=== PATIENT | male | born 1975 | race Caucasian/White ===

== ENCOUNTER 2016-09-20 18:47 | Emergency (ER) | payer OTHER ==
[~2016-09-20] VITALS: Ht 177.8 cm; Wt 87.5 kg
[2016-09-20 18:50] VITALS: Ht 177.8 cm; Wt 87.5 kg
[2016-09-20] MEDS ORDERED: SOD CHLORIDE 0.9% 1,000 ML IV STA (19:11)
[2016-09-20] MEDS ORDERED: ONDANSETRON 4 MG INJ IV STA (19:11)
--- NOTE | 2016-09-20 19:38 | ERD ---
ER Documentation Chief Complaint Date/Time DATE: 09/20/16 TIME: 19:37 Chief Complaint diffuse abd pain x 4 days HPI 40-year-old male comes in with abdominal pain that started 4 days ago. Patient started with epigastric pain 4 nights ago, it then migrated to the lower abdomen complains of suprapubic abdominal pain radiating to the right lower quadrant associated with mild nausea, and loose stools and constipation. He feels as if he has had chills at night, however no definite fever. For the pain he has tried doing laxatives, which led to watery stools only, no blood in the stools. Patient denies history of any abdominal surgeries. Patient's last oral intake was approximately an hour ago he states that he ate ice cream. ROS All systems reviewed and are negative except as per history of present illness. Medications Home Meds Active Scripts Magnesium Citrate* (Magnesium Citrate*) 296 Ml Solution, 296 ML PO ONCE, #1 BOTTLE Prov:OZZY ACEVEDO PA-C 09/20/16 Ranitidine Hcl* (Zantac*) 150 Mg Tablet, 150 MG PO BID Y for EPIGASTRIC PAIN, # 30 TAB Prov:OZZY ACEVEDO PA-C 09/20/16 Allergies Allergies: Coded Allergies: No Known Allergy (Unverified , 09/20/16) PMhx/Soc Medical and Surgical Hx: pt denies Medical Hx, pt denies Surgical Hx History of Surgery: No Anesthesia Reaction: No Hx Neurological Disorder: No Hx Respiratory Disorders: No Hx Cardiac Disorders: No Hx Psychiatric Problems: No Hx Miscellaneous Medical Probl: No Hx Alcohol Use: Yes Hx Tobacco Use: Yes Smoking Status: Current every day smoker Physical Exam Vitals Vital Signs Date Time Temp Pulse Resp B/P Pulse Ox O2 Delivery O2 Flow Rate FiO2 09/20/16 18:50 97.8 101 20 117/82 99 Physical Exam General: Well-developed, well-nourished. The patient appears in no acute distress. HEENT: Head is normocephalic, atraumatic. No scleral icterus. Neck: Supple. Nontender. Lungs: Clear to auscultation. Normal air movement. Heart: Regular rate and rhythm. S1 and S2 are normal. No murmurs, gallops, or rubs. Abdomen: Soft, tender in the right lower quadrant, and suprapubic, no rebound pain, no mass nondistended. Bowel sounds are normoactive. Extremities: No clubbing or cyanosis. Normal pulses. Moving extremities x 4. No weakness. Neurologic: Alert and oriented 3. No focal deficits. Skin: Normal turgor. No rash or lesions. Result Diagram: 09/20/16193409/20/161934 Results 24 hrs Laboratory Tests Test 09/20/16 19:26 09/20/16 19:35 Urine Color YELLOW Urine Clarity CLEAR Urine pH 6.0 Urine Specific [place] >=1.030 Urine Ketones NEGATIVE Urine Nitrite NEGATIVE Urine Bilirubin NEGATIVE Urine Urobilinogen 0.2 E.U./dL Urine Leukocyte Esterase NEGATIVE Urine Microscopic RBC 0-2/HPF Urine Microscopic WBC NONE SEEN/HPF Urine Uric Acid Crystals RARE Urine Hemoglobin TRACE Urine Glucose NEGATIVE% Urine Total Protein TRACE White Blood Count 9.110^3/ul Red Blood Count 5.4910^6/ul Hemoglobin 17.2g/dl Hematocrit 49.1% Mean Corpuscular Volume 89.4fl Mean Corpuscular Hemoglobin 31.3pg Mean Corpuscular Hemoglobin Concent 35.0g/dl Red Cell Distribution Width 12.1% Platelet Count 05742^3/UL Mean Platelet Volume 9.5fl Neutrophils % 49.0% Lymphocytes % 37.7% Monocytes % 9.1% Eosinophils % 2.8% Basophils % 1.1% Nucleated Red Blood Cells % 0.0/100WBC Neutrophils # 4.510^3/ul Lymphocytes # 3.410^3/ul Monocytes # 0.810^3/ul Eosinophils # 0.310^3/ul Basophils # 0.110^3/ul Nucleated Red Blood Cells # 0.010^3/ul Sodium Level 140mmol/L Potassium Level 4.0mmol/L Chloride Level 104mmol/L Carbon Dioxide Level 26mmol/L Anion Gap 14 Blood Urea Nitrogen 12mg/dl Creatinine 0.89mg/dl Glucose Level 104mg/dl Calcium Level 10.1mg/dl Total Bilirubin 0.5mg/dl Direct Bilirubin 0.00mg/dl Indirect Bilirubin 0.5mg/dl Aspartate Amino Transf (AST/SGOT) 23IU/L Alanine Aminotransferase (ALT/SGPT) 39IU/L Alkaline Phosphatase 55IU/L Total Protein 8.3g/dl Albumin 5.2g/dl Globulin 3.10g/dl Albumin/Globulin Ratio 1.67 Lipase 244U/L Current Medications Medications (Trade) Dose Ordered Sig/Marika Route PRN Reason Start Time Stop Time Status Last Admin Dose Admin Sodium Chloride (NS) 1,000 ml @ 1,000 mls/hr Q1H STAT IV 09/20/16 19:11 09/20/16 20:10 DC 09/20/16 19:46 Ondansetron HCl (Zofran Inj) 4 mg ONCE STAT IV 09/20/16 19:11 09/20/16 19:13 DC 09/20/16 19:46 DIAGNOSTIC IMAGING REPORT Patient: JOANA MCINTOSH : 1975 Age: 41 Sex: M MR #: [id number] DOS: 09/20/161910 Ordering MD: OZZY ACEVEDO PA-C Location: E Room/Bed: PROCEDURE: CT Abdomen and Pelvis without contrast. CLINICAL INDICATION: Pain. TECHNIQUE: CT scan of the abdomen and pelvis was performed on a multidetector slice CT scanner. No intravenous contrast material was utilized. Sagittal and coronal reformatted images were obtained from the axial source images. Images were reviewed on a high-resolution PACS workstation. Exam CTDlvol = 10 mGy and DLP = 539 Gy-cm. One of the following 3 dose reduction techniques were used: Automated exposure control; adjustment of the mA and/or kV according to patient size; or use of iterative reconstruction technique. COMPARISON: None. FINDINGS: There is no obstruction or ileus. The appendix is well visualized and normal in size. There is no evidence for diverticulitis. There is no free fluid. The liver is overall normal in size. No intrahepatic lesions are identified. The gallbladder is normal in appearance. There is no definite biliary ductal dilation. Pancreas is normal in appearance. The spleen is unremarkable.. There are no adrenal masses. The aorta is normal caliber. Kidneys are normal in appearance without hydronephrosis, mass or calculus. There is no perinephric collection. Ureters are of normal caliber and without evidence for an obstructing calculus. The urinary bladder is normal in appearance.. Limited evaluation of the lung bases is unremarkable. The bones are unremarkable. IMPRESSION: 1. No evidence for appendicitis. 2. No obstructive uropathy. 3. No bowel obstruction or ileus 4. No evidence for diverticulitis. 5. Otherwise negative. RPTAT: HMVK .Willian Balderas MD, Date Time Electronically viewed and signed by .Willian Balderas MD, on 09/20/2016 20:50 .K/ CC: OZZY ACEVEDO PA-C Procedures/MDM ED course: Patient was kept n.p.o., IV line was established, blood and urine were obtained. He was started on a fluid bolus of normal saline 1 L and Zofran 4 mg IV. He was offered pain medication, he kindly declined at this time. MDM: 41-year-old male comes in with abdominal pain radiating to the right lower quadrant over the last 4 days, patient's CT abdomen pelvis was negative for acute appendicitis. There is no evidence of diverticulitis, intra-abdominal abscess, bowel obstruction. All labs are unremarkable, there is no leukocytosis , chemistries normal. I believe the patient symptoms are likely from a viral process, or abdominal pain of unknown origin. He will be given ranitidine given his history epigastric abdominal pain, as well as MiraLAX, patient states that he has been constipated over the last few days. This time he clinically appears well, nontoxic and will be discharged home. At the end of the visit he reports that he has had a knot type of feeling in the left side of his neck, and he feels it every time he swallows, do not see any evidence of a mass, I believe the patient may follow-up with ENT outpatient. Departure Diagnosis: Primary Impression: Abdominal pain Condition: Good ZOZY ACEVEDO PA-C Sep 20, 2016 19:38
[2016-09-20 19:44] LABS: ADD SCAN DIFF NO
[2016-09-20 19:48] LABS: BASOPHIL # 0.1 10^3/ul (0.0-0.1); BASOPHILS % 1.1 % (0.0-2.0); EOSINOPHILS # 0.3 10^3/ul (0.0-0.5); EOSINOPHILS % 2.8 % (0.0-7.0); HEMATOCRIT 49.1 % (42.0-52.0); HEMOGLOBIN 17.2 g/dl (14.0-18.0); LYMPHOCYTES # 3.4 10^3/ul (0.8-2.9); LYMPHOCYTES % 37.7 % (15.0-51.0); MEAN CORPUSCULAR HEMOGLOBIN 31.3 pg (29.0-33.0); MEAN CORPUSCULAR VOLUME 89.4 fl (82.0-101.0); MEAN PLATELET VOLUME 9.5 fl (7.4-10.4); MONOCYTE # 0.8 10^3/ul (0.3-0.9); MONOCYTES % 9.1 % (0.0-11.0); NEUTROPHIL # 4.5 10^3/ul (1.6-7.5); PLATELET COUNT 277 10^3/UL (140-415); RED BLOOD COUNT 5.49 10^6/ul (4.70-6.10); RED CELL DISTRIBUTION WIDTH 12.1 % (11.5-14.5); WHITE BLOOD COUNT 9.1 10^3/ul (4.8-10.8)
[2016-09-20 20:12] LABS: ADD UMIC YES; URINE BILIRUBIN (Dip) NEGATIVE (NEGATIVE); URINE BLOOD (Dip) TRACE (NEGATIVE); URINE COLOR YELLOW (YELLOW); URINE GLUCOSE (Dip) NEGATIVE (NEGATIVE); URINE KETONES (Dip) NEGATIVE (NEGATIVE); URINE LEUKOCYTE ESTERASE (Dip) NEGATIVE (NEGATIVE); URINE NITRITE (Dip) NEGATIVE (NEGATIVE); URINE TOTAL PROTEIN (Dip) TRACE (NEGATIVE); URINE UROBILINOGEN (Dip) 0.2 E.U./dL (0.1-1.0)
[2016-09-20 20:14] LABS: ALBUMIN 5.2 g/dl (3.3-4.9); ALBUMIN/GLOBULIN RATIO 1.67; BILIRUBIN,INDIRECT 0.5 mg/dl (0-1.1); BILIRUBIN,TOTAL 0.5 mg/dl (0.2-1.3); CALCIUM 10.1 mg/dl (8.4-10.2); CREATININE 0.89 mg/dl (0.61-1.24); TOTAL PROTEIN 8.3 g/dl (6.1-8.1)
[2016-09-20 20:24] LABS: URIC ACID CRYSTALS,URINE RARE; URINE RBCS 0-2 /HPF (0)
--- NOTE | 2016-09-20 20:50 | RADRPT ---
PROCEDURE: CT Abdomen and Pelvis without contrast. CLINICAL INDICATION: Pain. TECHNIQUE: CT scan of the abdomen and pelvis was performed on a multidetector slice CT scanner. No intravenous contrast material was utilized. Sagittal and coronal reformatted images were obtained fr om the axial source images. Images were reviewed on a high-resolution PACS workstation. Exam CTDlvol = 10 mGy and DLP = 539 Gy-cm. One of the following 3 dose reduction techniques were used: Automated exposure control; adjustment of the mA and/or kV according to patient size; or use of iterative rec onstruction technique. COMPARISON: None. FINDINGS: There is no obstruction or ileus. The appendix is well visualized and normal in size. There is no e vidence for diverticulitis. There is no free fluid. The liver is overall normal in size. No intrahepatic lesions are identified. The gallbladder is norm al in appearance. There is no definite biliary ductal dilation. Pancreas is normal in appearance. Th e spleen is unremarkable.. There are no adrenal masses. The aorta is normal caliber. Kidneys are normal in appearance without hydronephrosis, mass or calculus. There is no perinephric c ollection. Ureters are of normal caliber and without evidence for an obstructing calculus. The urin eduar bladder is normal in appearance.. Limited evaluation of the lung bases is unremarkable. The bones are unremarkable. IMPRESSION: 1. No evidence for appendicitis. 2. No obstructive uropathy. 3. No bowel obstruction or ileus 4. No evidence for diverticulitis. 5. Otherwise negative. RPTAT: HMVK .Willian Balderas MD, Date Time Electronically viewed and signed by .Willian Balderas MD, MD on 09/20/2016 20:50 .K/
[2016-09-20] MEDS ORDERED: MAGN296S40 PO (21:19)
[2016-09-20] MEDS ORDERED: RANI150T9 PO (21:19)
[2016-09-20 21:43] VITALS: BP 129/82; PULSE 69; RESP 16; TEMP 98.9
== END 2016-09-20 21:45 | disposition home or self-care (01) ==
LOC: FTE 18:47
DX: R10.84 Generalized abdominal pain (principal); R11.0 Nausea; F17.210 Nicotine dependence, cigarettes, uncomplicated
CPT/HCPCS: 74176; 80053; 81001; 83690; 85025; J2405; J7030; 36415; 96374